=== PATIENT | female | born 1985 | race Two or more races ===

== ENCOUNTER 2017-07-16 03:25 | Inpatient (IN) | payer OTHER ==
[~2017-07-16] VITALS: Ht 149.9 cm; Wt 168.0 kg
[2017-07-16] MEDS ORDERED: PRENATAL 19 CH1 EAC1 PO (05:18)
== END 2017-07-19 15:02 | disposition home or self-care (01) | DRG 775 ==
LOC: LDR 03:25 → OB/GYN 03:25
PROC: 0KQM0ZZ Repair Perineum Muscle, Open Approach (ICD-10-PCS; principal; 2017-07-16)
PROC: 10E0XZZ Delivery of Products of Conception, External Approach (ICD-10-PCS; 2017-07-16)
PROC: 4A1HXCZ Monitoring of Products of Conception, Cardiac Rate, External Approach (ICD-10-PCS; 2017-07-16)
PROC: 4A033R1 Measurement of Arterial Saturation, Peripheral, Percutaneous Approach (ICD-10-PCS; 2017-07-16)
DX: O70.1 Second degree perineal laceration during delivery (principal); Z37.0 Single live birth; O60.14X0 Preterm labor third trimester with preterm delivery third trimester, not applicable or unspecified; O22.43 Hemorrhoids in pregnancy, third trimester; O36.5930 Maternal care for other known or suspected poor fetal growth, third trimester, not applicable or unspecified; O42.913 Preterm premature rupture of membranes, unspecified as to length of time between rupture and onset of labor, third trimester; Z3A.35 35 weeks gestation of pregnancy